=== PATIENT | female | born 1950 | race Caucasian/White ===

== ENCOUNTER 2019-01-18 13:24 | Inpatient (IN) | payer MEDICARE, OTHER ==
[~2019-01-18] VITALS: Ht 160 cm; Wt 104.3 kg
--- NOTE | 2019-01-18 13:42 | NUR ---
[id number], FROM [place], CAME IN DUE TO HYPOTENSION 76/43, PT WAS NOT DIALYZED. PT HAS NO COMPLAINTS AT THIS TIME. PORTACATH AT RIGHT UPPER CHEST. PER PT, OLD SHUNT IN LEFT UPPER ARM, USED FOR EMERGENCIES. NOTED WITH GENERALIZED EDEMA. STATES HAVING OSTEOMYELITIS WITH HEALING WOUNDS ON BLE. NO ACUTE DISTRESS NOTED. ON MONITOR AND READY FOR EVAL.
--- NOTE | 2019-01-18 13:55 | NUR ---
PT IS HARD STICK. PER MD, PT WILL NEED PICC LINE. NURSING SUP CALLED.
[2019-01-18] MEDS ORDERED: IV NS 0.9% 1,000 ML BAG IV ONE ×2 (14:00)
[2019-01-18] MEDS ORDERED: FOLI0.8T43 PO (14:19)
[2019-01-18] MEDS ORDERED: PROT946L PO (14:19)
[2019-01-18] MEDS ORDERED: ASCO500T8 PO (14:19)
[2019-01-18] MEDS ORDERED: ZINC220C6 PO (14:19)
[2019-01-18] MEDS ORDERED: ACET-907 PO (14:19)
[2019-01-18] MEDS ORDERED: TRAM50TA2 PO (14:19)
[2019-01-18] MEDS ORDERED: APIX2.5T PO (14:19)
[2019-01-18] MEDS ORDERED: PANT40TA4 PO (14:19)
[2019-01-18] MEDS ORDERED: MAGN400O6 BC (14:19)
[2019-01-18] MEDS ORDERED: FERR325T23 PO (14:19)
[2019-01-18] MEDS ORDERED: NA P133E RC (14:19)
[2019-01-18] MEDS ORDERED: GABA-534 PO (14:19)
[2019-01-18] MEDS ORDERED: ASPI-605 PO (14:19)
[2019-01-18] MEDS ORDERED: BISA10SU61 RC (14:19)
[2019-01-18] MEDS ORDERED: SENN-168 PO (14:19)
[2019-01-18 14:37] LABS: APPEARANCE,URINE Cloudy (CLEAR); BILIRUBIN,URINE Negative (NEGATIVE); BLOOD, URINE Moderate Ery/uL (NEGATIVE); COLOR,URINE Yellow (YELLOW); KETONES,URINE Negative (NEGATIVE); LEUKOCYTE ESTERASE ,URINE Large (NEGATIVE); NITRITE, URINE Negative (NEGATIVE); PH,URINE 7.5 (5.0-8.0); PROTEIN,URINE >=300 mg/dl (NEGATIVE); UGLUCOSE Negative (NEGATIVE); UROBILINOGEN,URINE 0.2 EU/dL (0.2)
[2019-01-18 14:43] LABS: BACTERIA,URINE 2+ /HPF (None Seen); WBC,URINE 51-80 /HPF (0-3)
[2019-01-18] MEDS ORDERED: CEFTRIAXONE 1GM BAG (ER ONLY) 50 ML IV ONE ×2 (15:00→16:41)
--- NOTE | 2019-01-18 15:17 | NUR ---
PICC NURSE AT BEDSIDE
--- NOTE | 2019-01-18 15:46 | NUR ---
EPIC CONCERT OR LECTURE HALL MANAGER PAGED
--- NOTE | 2019-01-18 15:59 | NUR ---
DR JOSE CARLOS HERRERA
--- NOTE | 2019-01-18 16:17 | NUR ---
PICC LINE PLACED 5 FR ERLINDA
[2019-01-18 16:28] LABS: BASOPHILS # (AUTO) 0.1 /CMM (0.0-0.2); BASOPHILS % (AUTO) 0.5 % (0.0-2.0); EOSINOPHILS % (AUTO) 0.3 % (0.0-6.0); HEMATOCRIT 29 % (33-45); HEMOGLOBIN 9.3 g/dL (11.5-14.8); LYMPHOCYTES # (AUTO) 2.3 /CMM (0.8-4.8); LYMPHOCYTES % (AUTO) 16.9 % (20.0-44.0); MEAN CORPUSCULAR HGB CONC 32 g/dl (31.0-36.0); MEAN CORPUSCULAR VOLUME 95 fL (82-100); MONOCYTES # (AUTO) 0.5 /CMM (0.1-1.30); NEUTROPHILS # (AUTO) 10.6 /CMM (1.8-8.9); NEUTROPHILS % (AUTO) 78.3 % (43.0-81.0); PLATELET COUNT (AUTO) 189 /CMM (150-450); RED BLOOD CELL COUNT(AUTO) 3.03 MIL/uL (4.0-5.2); WHITE BLOOD COUNT (AUTO) 13.6 K/uL (4.3-11.0)
[2019-01-18 16:33] LABS: CALCIUM, SERUM 8.8 mg/dL (8.5-10.1); CARBON DIOXIDE 23 mmol/L (21-32); CHLORIDE 103 mmol/L (98-107); CREATININE 4.4 mg/dL (0.6-1.3); GLUCOSE 95 mg/dL (74-106); POTASSIUM 5.7 mmol/L (3.5-5.1); SODIUM SERUM 136 mmol/L (136-145); UREA NITROGEN, BLOOD 33 mg/dL (7-18)
--- NOTE | 2019-01-18 17:02 | NUR ---
PT RESTING COMFORTABLY IN BED. AWAITING LAB RESULTS BEFORE TRANSFER TO UNIT
[2019-01-18 17:23] LABS: BAND % (MANUAL) 2 % (0.0-5.0); EOSINOPHILS % (MANUAL) 1 % (0-4); LYMPHOCYTES % (MANUAL) 15 % (16-48); MONOCYTES % (MANUAL) 4 % (0-11.0); NEUTROPHILS % (MANUAL) 78 (42-76)
[2019-01-18 17:39] LABS: ALANINE AMINOTRANSFERASE 12 U/L (12-78); ALKALINE PHOSPHATASE 184 U/L (46-116); ASPARTATE AMINOTRANSFERASE 16 U/L (15-37); BILIRUBIN,DIRECT 0.1 mg/dL (0.0-0.2); BILIRUBIN,TOTAL 0.2 mg/dL (0.2-1.0); TOTAL PROTEIN, SERUM 5.2 g/dL (6.4-8.2)
[2019-01-18 17:41] LABS: ALBUMIN 1.1 g/dL (3.4-5.0)
[2019-01-18] MEDS ORDERED: NA PHOS,M-B/NA PHOS,DI-BA 1 EA ENEMA RC PRN (18:00)
[2019-01-18] MEDS ORDERED: MAGNESIUM HYDROXIDE 30 ML UDC PO PRN (18:00)
[2019-01-18] MEDS ORDERED: BISACODYL SUPP (10 MG) 10 MG/SUPP.RECT SUPP.RECT RC PRN (18:00)
--- NOTE | 2019-01-18 18:00 | NUR ---
JASMINA RN NOTES PT ARRIVED ON JASMINA FLOOR; VS STABLE. BP 112/50. STARTED ON IV FLUIDS MD ORDERED. ORIENTED PT TO ROOM/ CLEANED PT. WILL ENDORSE TO PM NURSE FOR JUAN R.
--- NOTE | 2019-01-18 18:00 | NUR ---
PT TRANSFERRED TO UNIT VIA GURNEY. REPORT GIVEN TO SHANDA CHO AT BEDSIDE
[2019-01-18 18:44] VITALS: BP 112/50
[2019-01-18] MEDS: IV D5/ 0.9% NACL 1,000 ML IV SCH (19:08)
--- NOTE | 2019-01-18 19:24 | NUR ---
TD RN NOTES RECEIVED PT ON BED. A/O X 4. ON ROOM AIR NO RESPIRATORY DISTRESS NOTED.ON TELE MONITOR SR. IV ACCESS ON RIGHT UPPER ARM PICC LINE, PATENT AND INTACT. HD ACCESS ON RIGHT UPPER CHEST NO BLEEDING NOTED. HEAD OF BED ELEVATED. SIDE RAILS UP. CALL LIGHT WITHIN REACH, BED ALARM ON. WILL CONTINUE TO MONITOR PT CLOSELY.
[2019-01-18 20:28] VITALS: BP 98/51
[2019-01-18] MEDS: GABAPENTIN 300 MG CAPSULE PO SCH ×2 (21:08→21:20)
[2019-01-18] MEDS: SENNOSIDES 8.6 MG TABLET PO SCH ×2 (21:08→21:20)
--- NOTE | 2019-01-18 21:15 | NUR ---
TD RN NOTES CALLED MEDICAL TERRITORY MANAGER FOR POTASSIUM OF 5.7 AWAITING CALL BACK.
[2019-01-19] VITALS: BP 98/44
[2019-01-19 04:00] VITALS: BP 92/52
[2019-01-19] MEDS: IV D5/ 0.9% NACL 1,000 ML IV SCH ×2 (05:00→19:53)
[2019-01-19 05:21] LABS: BASOPHILS # (AUTO) 0.1 /CMM (0.0-0.2); BASOPHILS % (AUTO) 0.5 % (0.0-2.0); EOSINOPHILS % (AUTO) 0.6 % (0.0-6.0); HEMATOCRIT 27 % (33-45); HEMOGLOBIN 8.7 g/dL (11.5-14.8); LYMPHOCYTES # (AUTO) 1.7 /CMM (0.8-4.8); LYMPHOCYTES % (AUTO) 14.5 % (20.0-44.0); MEAN CORPUSCULAR HGB CONC 32 g/dl (31.0-36.0); MEAN CORPUSCULAR VOLUME 96 fL (82-100); MONOCYTES # (AUTO) 0.5 /CMM (0.1-1.30); MONOCYTES % (AUTO) 4.4 % (2.0-12.0); NEUTROPHILS # (AUTO) 9.3 /CMM (1.8-8.9); PLATELET COUNT (AUTO) 161 /CMM (150-450); RED BLOOD CELL COUNT(AUTO) 2.82 MIL/uL (4.0-5.2); WHITE BLOOD COUNT (AUTO) 11.6 K/uL (4.3-11.0)
[2019-01-19 05:34] LABS: CREATININE 4.5 mg/dL (0.6-1.3); MAGNESIUM 1.5 mg/dL (1.8-2.4); PHOSPHORUS 3.3 mg/dL (2.5-4.9); POTASSIUM 5.3 mmol/L (3.5-5.1)
--- NOTE | 2019-01-19 07:18 | NUR ---
TD RN NOTES NO ACUTE CHANGES NOTED DURING THE SHIFT. PROVIDED COMFORT AND SAFETY. WOUND CARE DONE. BP WNL.WILL ENDORSE TO THE AM NURSE FOR CONTINUITY OF CARE.
[2019-01-19 08:00] VITALS: BP 93/53
[2019-01-19] MEDS: ZINC SULFATE 220 MG CAPSULE PO SCH (08:15)
[2019-01-19] MEDS: ASPIRIN EC 81 MG TABLET.DR PO SCH (08:15)
[2019-01-19] MEDS: VIT B CMPLX 3/FA/VIT C/BIOTIN 1 TAB TABLET PO SCH (08:15)
[2019-01-19] MEDS: PANTOPRAZOLE 40 MG TABLET.DR PO SCH (08:15)
[2019-01-19] MEDS: ASCORBIC ACID 500 MG TABLET PO SCH (08:16)
[2019-01-19] MEDS: FERROUS SULFATE (325 MG) 325 MG/TAB TABLET PO SCH (08:16)
[2019-01-19] MEDS: APIXABAN 2.5 MG TABLET PO SCH ×2 (08:17→17:31)
[2019-01-19] MEDS: PROSOURCE / PROSTAT (PYXIS) 30 ML UDC GT SCH (09:00)
--- NOTE | 2019-01-19 10:07 | NUR ---
WARP SPLITTER AT BEDSIDE. BP 111/70
--- NOTE | 2019-01-19 10:32 | NUR ---
WOUND CARE CONSULT: ATTEMPTED SKIN ASSESSMENT BEFORE DIALYSIS TREATMENT BUT PT HAVING PAIN, ESPECIALLY IN LOWER LEGS. NECROTIC WOUNDS NOTED TO LOWER LEGS. ADMISSION PHOTOS SHOW RASHES TO SKIN FOLDS AND WOUNDS TO SACRAL/BUTTOCKS AREA. RECOMMEND SURGICAL CONSULT AND DPM CONSULT. DR MORALES NOTIFIED OF SURGICAL CONSULT REQUEST. DR CARRERO AWARE OF DPM CONSULT REQUEST. DEFER TO DPM AND PLASTIC SURGERY TEAM FOR WOUND TREATMENT PLAN. FIRST STEP LOW AIRLOSS MATTRESS ORDERED AND SKIN PROTECTION RECOMMENDATIONS DISCUSSED WITH NURSING STAFF. WILL SEE PRN. HOUSE IN AGREEMENT WITH PLAN OF CARE. CURRENT HENRRY SCORE IS 12.
[2019-01-19] MEDS ORDERED: Z GUARD REMEDY 2 OZ OINT TP PRN (11:00)
[2019-01-19] MEDS ORDERED: ALBUMIN 25% 25 GM in PREMIX 1 EA IV ONE (11:00)
[2019-01-19] MEDS ORDERED: Magnesium 1GM/D5W 100ML PREMIX 100 ML IV SCH (13:00)
[2019-01-19] MEDS: CLOTRIMAZOLE 1% 15 GM TUBE TP SCH ×2 (13:09→19:58)
[2019-01-19] MEDS: Z GUARD REMEDY 2 OZ OINT TP SCH (13:10)
--- NOTE | 2019-01-19 13:24 | NUR ---
DIALYSIS COMPLETED. BP 118/60
--- NOTE | 2019-01-19 13:36 | NUR ---
CONSENT FOR SERIAL DEBRIDEMENT SIGNED
[2019-01-19] MEDS: HYDROGEL DRESSING 90 GM TUBE TP SCH (14:04)
[2019-01-19] MEDS ORDERED: EPOETIN ALFA (10,000 UNIT) 10,000 UNIT/ML VIAL IV ONE (15:00)
[2019-01-19 16:00] VITALS: BP 100/57
[2019-01-19] MEDS: CEFTRIAXONE 1 G in IV D5W 50 ML IV SCH (17:31)
[2019-01-19 20:00] VITALS: BP 106/56
--- NOTE | 2019-01-19 20:44 | NUR ---
rECIEVED ALERT AND ORIENTATED DAUGHTER AT THE BEDSIDE PATIENTS A/OX4 VERBALIZING HER NEEDS ARMS AND HANDS AND LEGS AND FEET 3+ EDEMA NO NOTED SOB
[2019-01-19] MEDS: SENNOSIDES 8.6 MG TABLET PO SCH (21:31)
[2019-01-19] MEDS: GABAPENTIN 300 MG CAPSULE PO SCH (21:31)
[2019-01-20 04:00] VITALS: BP 93/49
--- NOTE | 2019-01-20 04:26 | NUR ---
ENDING NOTES: SLEPT 10 HOURS THIS NIGHT. BED BATH GIVEN EARLY AND SHE SLEPT WELL. PATIENT EXPRESSED HAPPINESS AND SMILES AND HAS A GOOD ATTITTIDE ATTEMPTS TO ASSIST NURSES WHEN CARE IS BEING RENDERED, BY GRABBING THE RAILS , ASSISTING SHE IS BEING REPOSITIONED. aSP, THIS 12 HOURS D/T AGE AND BEING IN THE BED, GOOD ABOUT TAKING FLUIDS SWALLOWS W/O PROBLEMS. LATEST bLOOD PRESSURE 93/47. IV FLUIDS CONTINUE TO INFUSE, ASYMPTOMATIC.
[2019-01-20 06:44] LABS: BASOPHILS % (AUTO) 0.1 % (0.0-2.0); EOSINOPHILS % (AUTO) 0.6 % (0.0-6.0); HEMATOCRIT 26 % (33-45); HEMOGLOBIN 8.2 g/dL (11.5-14.8); LYMPHOCYTES # (AUTO) 1.6 /CMM (0.8-4.8); LYMPHOCYTES % (AUTO) 19.7 % (20.0-44.0); MEAN CORPUSCULAR HGB CONC 32 g/dl (31.0-36.0); MEAN CORPUSCULAR VOLUME 95 fL (82-100); MONOCYTES # (AUTO) 0.4 /CMM (0.1-1.30); MONOCYTES % (AUTO) 4.4 % (2.0-12.0); NEUTROPHILS # (AUTO) 6.1 /CMM (1.8-8.9); NEUTROPHILS % (AUTO) 75.2 % (43.0-81.0); PLATELET COUNT (AUTO) 128 /CMM (150-450); RED BLOOD CELL COUNT(AUTO) 2.72 MIL/uL (4.0-5.2); WHITE BLOOD COUNT (AUTO) 8.1 K/uL (4.3-11.0)
[2019-01-20 07:03] LABS: CALCIUM, SERUM 7.6 mg/dL (8.5-10.1); CREATININE 3.3 mg/dL (0.6-1.3); MAGNESIUM 1.8 mg/dL (1.8-2.4); PHOSPHORUS 2.1 mg/dL (2.5-4.9); POTASSIUM 3.9 mmol/L (3.5-5.1)
[2019-01-20 08:00] VITALS: BP 130/62
[2019-01-20] MEDS: FERROUS SULFATE (325 MG) 325 MG/TAB TABLET PO SCH (08:24)
[2019-01-20] MEDS: ASCORBIC ACID 500 MG TABLET PO SCH (08:24)
[2019-01-20] MEDS: PANTOPRAZOLE 40 MG TABLET.DR PO SCH (08:24)
[2019-01-20] MEDS: ZINC SULFATE 220 MG CAPSULE PO SCH (08:24)
[2019-01-20] MEDS: ASPIRIN EC 81 MG TABLET.DR PO SCH (08:24)
[2019-01-20] MEDS: VIT B CMPLX 3/FA/VIT C/BIOTIN 1 TAB TABLET PO SCH (08:24)
[2019-01-20] MEDS: APIXABAN 2.5 MG TABLET PO SCH ×2 (08:25→17:20)
[2019-01-20] MEDS: CLOTRIMAZOLE 1% 15 GM TUBE TP SCH ×2 (08:27→17:19)
[2019-01-20] MEDS: HYDROGEL DRESSING 90 GM TUBE TP SCH (08:28)
[2019-01-20] MEDS: Z GUARD REMEDY 2 OZ OINT TP SCH (08:28)
[2019-01-20] MEDS: IV D5/ 0.9% NACL 1,000 ML IV SCH (08:29)
[2019-01-20] MEDS ORDERED: K PHOS NEUTRAL 250 MG TABLET PO ONE (11:00)
[2019-01-20] MEDS: PROSOURCE / PROSTAT (PYXIS) 30 ML UDC GT SCH (12:10)
[2019-01-20] MEDS: CEFTRIAXONE 1 G in IV D5W 50 ML IV SCH (17:19)
--- NOTE | 2019-01-20 19:15 | NUR ---
MS RN OPENING NOTES RECEIVED PATIENT IN BED. AWAKE, A/OX4. ABLE TO MAKE NEEDS KNOWN. ON ROOM AIR, NO SOB AND NO RESPIRATORY DISTRESS NOTED. DENIES ANY PAIN AT THE MOMENT. PATIENT COMPLAINING THAT NO ONE HAS CLEANED HER SINCE GLAZIER STAINED GLASS, WILL MAKE SURE PATIENT WILL BE CLEANED NEEDED. IV ACCESS ON RIGHT UPPER ARM PICC LINE, PATENT AND INTACT, D5 NS RUNNING AT 80ML/HR, NO INFILTRATION NOTED. HD ACCESS ON RIGHT UPPER CHEST, NO BLEEDING NOTED, SITE C/D/I. HEAD OF BED ELEVATED. SAFETY MEASURES IN PLACE; SIDE RAILS UP X2, CALL LIGHT WITHIN REACH, BED ALARM ON, BED LOCKED AND IN LOWEST POSITION. WILL CONTINUE TO MONITOR PT CLOSELY.
[2019-01-20 20:00] VITALS: BP 97/61
[2019-01-20] MEDS: GABAPENTIN 300 MG CAPSULE PO SCH ×2 (21:35→21:58)
[2019-01-20] MEDS: SENNOSIDES 8.6 MG TABLET PO SCH (21:36)
--- NOTE | 2019-01-21 01:00 | NUR ---
MS RN NOTES PAGED HOSPITALIST REGARDING PATIENT IV FLUIDS ORDER D5NS 1000ML AT 80ML/HR. PATIENT HAS ESRD AND ON HD. HOSPITALIST ORDERED TO HOLD IV FLUIDS FOR NOW AND ENDORSE TO AM RN. WILL ATTEND TO MD ORDER AND WILL ENDORSE TO AM RN.
[2019-01-21 04:00] VITALS: BP 101/60
--- NOTE | 2019-01-21 07:15 | NUR ---
RN OPENING NOTES RECEIVED REPORT FROM DOWEL POINTER RN. PT IS ASLEEP IN BED WILL CONTINUE TO MONITOR. PT HAS EQUAL CHEST RISE AND FALL. BED IS LOCKED AND IN LOWEST POSITION WITH CALL LIGHT IN REACH. NO OBVIOUS SIGNS OF PAIN OR SOB NOTED AT PRESENT TIME WILL CONTINUE TO MONITOR.
--- NOTE | 2019-01-21 07:15 | NUR ---
MS RN CLOSING NOTES PATIENT IN BED. AWAKE, A/OX4, WITH EPISODES OF CONFUSION LAST NIGHT. ABLE TO MAKE NEEDS KNOWN. NO ACUTE CHANGES THROUGHOUT SHIFT. ON ROOM AIR, NO SOB AND NO RESPIRATORY DISTRESS NOTED. DENIES ANY PAIN AT THE MOMENT. IV ACCESS ON RIGHT UPPER ARM PICC LINE, PATENT AND INTACT, S/L. HD ACCESS ON RIGHT UPPER CHEST, NO BLEEDING NOTED, SITE C/D/I. REPOSITIONED Q2H. CHANGES DIAPER X4 D/T LOOSE STOOL, KEPT PATIENT CLEAN AND DRY. ALL MD ORDERS ATTENDED, ALL NEEDS ANTICIPATED AND MET. HEAD OF BED ELEVATED. SAFETY MEASURES IN PLACE; SIDE RAILS UP X2, CALL LIGHT WITHIN REACH, BED ALARM ON, BED LOCKED AND IN LOWEST POSITION. ENDORSED TO AM RN FOR JUAN R.
[2019-01-21 08:00] VITALS: BP 101/52
[2019-01-21] MEDS: ASCORBIC ACID 500 MG TABLET PO SCH (08:49)
[2019-01-21] MEDS: PANTOPRAZOLE 40 MG TABLET.DR PO SCH (08:49)
[2019-01-21] MEDS: FERROUS SULFATE (325 MG) 325 MG/TAB TABLET PO SCH (08:49)
[2019-01-21] MEDS: VIT B CMPLX 3/FA/VIT C/BIOTIN 1 TAB TABLET PO SCH (08:49)
[2019-01-21] MEDS: ZINC SULFATE 220 MG CAPSULE PO SCH (08:50)
[2019-01-21] MEDS: ASPIRIN EC 81 MG TABLET.DR PO SCH (08:50)
[2019-01-21] MEDS: APIXABAN 2.5 MG TABLET PO SCH ×2 (08:51→16:32)
[2019-01-21] MEDS: PROSOURCE / PROSTAT (PYXIS) 30 ML UDC GT SCH (08:51)
[2019-01-21] MEDS: HYDROGEL DRESSING 90 GM TUBE TP SCH (08:52)
[2019-01-21] MEDS: Z GUARD REMEDY 2 OZ OINT TP SCH (08:53)
[2019-01-21] MEDS: CLOTRIMAZOLE 1% 15 GM TUBE TP SCH ×2 (08:53→16:33)
[2019-01-21 12:00] VITALS: BP 119/53
[2019-01-21 16:00] VITALS: BP 114/62
[2019-01-21] MEDS: CEFTRIAXONE 1 G in IV D5W 50 ML IV SCH (16:31)
--- NOTE | 2019-01-21 18:46 | NUR ---
RN CLOSING NOTES PT IS AWAKE IN BED EATING FOOD. PT IS A&OX3 WITH CALL LIGHT IN REACH. PICC LINE IN ERLINDA FLUSHING. PT IS BED CONFINED. PT DENIES ANY PAIN OR SOB AT PRESENT MOMENT. BED IS LOCKED AND IN LOWEST POSITION WITH CALL LIGHT IN REACH. WILL ENDORSE CONTINUATION OF CARE TO SELF PAY REPRESENTATIVE RN.
--- NOTE | 2019-01-21 19:34 | NUR ---
MS RN NOTE: RECEIVED PT ON BED ASLEEP BUT AROUSES EASILY TO VERBAL AND TACTILE STIMULI. PT IS ALERT AND ORIENTED X3. NO APPARENT DISTRESS NOTED. NO COMPLAINTS OF PAIN OR DISCOMFORT AT THIS TIME. ON ROOM AIR, NO SOB NOTED. RIGHT UPPER ARM PICC LINE INTACT AND PATENT, FLUSHING WELL. KEPT CLEAN, DRY AND COMFORTABLE. SAFETY AND FALL PRECAUTIONS OBSERVED AND MAINTAINED. WILL CONTINUE TO MONITOR PT.
[2019-01-21 20:00] VITALS: BP 102/68
[2019-01-21] MEDS: SENNOSIDES 8.6 MG TABLET PO SCH (22:00)
[2019-01-21] MEDS: GABAPENTIN 300 MG CAPSULE PO SCH (22:00)
[2019-01-22 04:00] VITALS: BP 137/91
--- NOTE | 2019-01-22 06:37 | NUR ---
MS RN NOTE: NO CHANGES NOTED THROUGHOUT THE SHIFT. NO APPARENT DISTRESS NOTED. DENIES PAIN AND DISCOMFORT AT THIS TIME. ON ROOM AIR, SATURATING WELL. BREATHING EVEN AND UNLABORED WITH NORMAL RESPIRATIONS. RIGHT UPPER ARM PICC LINE INTACT AND PATENT, FLUSHING WELL. KEPT CLEAN, DRY AND COMFORTABLE. CALL LIGHT PLACED WITHIN REACH. SAFETY AND FALL PRECAUTIONS OBSERVED AND MAINTAINED. WILL ENDORSE TO DAY SHIFT RN FOR CONTINUITY OF CARE.
--- NOTE | 2019-01-22 07:20 | NUR ---
RN INITIAL NOTE PATIENT IN BED, ASLEEP BUT EASILY AROUSABLE. NO COMPLAINS OF ANY PAIN NOR SOB, ON ROOM AIR. HAS BUE/BLE EDEMA. HAS MULTIPLE WOUNDS. HAS A RIGHT UA PICC, SL. HAS RIGHT CW HD CATH. ON RENAL STANDARD DIET. BED LOCKED AND IN LOWEST POSITION. CALL LIGHT WITHIN REACH. WILL CONTINUE TO MONITOR
[2019-01-22 08:00] VITALS: BP 98/62
[2019-01-22] MEDS: PANTOPRAZOLE 40 MG TABLET.DR PO SCH ×2 (08:18→08:30)
[2019-01-22] MEDS: ZINC SULFATE 220 MG CAPSULE PO SCH (08:18)
[2019-01-22] MEDS: ASCORBIC ACID 500 MG TABLET PO SCH (08:18)
[2019-01-22] MEDS: ASPIRIN EC 81 MG TABLET.DR PO SCH (08:18)
[2019-01-22] MEDS: VIT B CMPLX 3/FA/VIT C/BIOTIN 1 TAB TABLET PO SCH (08:18)
[2019-01-22] MEDS: FERROUS SULFATE (325 MG) 325 MG/TAB TABLET PO SCH (08:18)
[2019-01-22] MEDS: PROSOURCE / PROSTAT (PYXIS) 30 ML UDC GT SCH ×2 (08:20→08:30)
[2019-01-22] MEDS: APIXABAN 2.5 MG TABLET PO SCH ×2 (08:22→16:34)
[2019-01-22] MEDS: CLOTRIMAZOLE 1% 15 GM TUBE TP SCH ×2 (08:27→16:41)
[2019-01-22] MEDS: HYDROGEL DRESSING 90 GM TUBE TP SCH (08:28)
[2019-01-22] MEDS: Z GUARD REMEDY 2 OZ OINT TP SCH (08:28)
--- NOTE | 2019-01-22 08:30 | NUR ---
RN NOTE PATIENT REFUSED PROTONIX AND PROSTAT. EXPLAINED THAT THESE MEDICATIONS ARE VERY IMPORTANT FOR HER, PATIENT STILL REFUSED. PATIENT ALERT AND ORIENTED X4
[2019-01-22] MEDS: TRAMADOL HCL 50 MG TABLET PO PRN (09:07)
[2019-01-22] MEDS: ACETAMINOPHEN W/ CODEINE#3 1 EA TABLET PO PRN ×2 (10:23→16:44)
--- NOTE | 2019-01-22 10:27 | NUR ---
RN NOTE PATIENT STILL COMPLAINING OF PAIN AFTER TRAMADOL. SHE ASKED SPECIFICALLY FOR TYLENOL WITH CODEINE. WILL CONTINUE TO MONITOR
[2019-01-22 16:00] VITALS: BP 109/70
[2019-01-22] MEDS: CEFTRIAXONE 1 G in IV D5W 50 ML IV SCH (16:31)
--- NOTE | 2019-01-22 18:38 | NUR ---
RN NOTE PATIENT HAD 1X EPISODE OF NAUSEA AND VOMITING. NO BLOOD NOTED ON THE VOMIT. SMALL AMOUNT. GREEN COLOR. DAUGHTER AT BEDSIDE. PATIENT REFUSED TO HAVE ZOFRAN.
--- NOTE | 2019-01-22 18:45 | NUR ---
RN CLOSING NOTE PATIENT AWAKE AND ALERT. ON ROOM AIR, NO SOB NOTED. HAD 1X BM. ALL VITALS WNL. MEDS GIVEN, SOME REFUSED. WOUND CARE DONE. HAS RIGHT UPPER ARM PICC SALINE LOCKED. HAS RIGHT CW HD CATH. HD TOMORROW AT 0700. PATIENT WAS GIVEN TYLENOL WITH CODEINE, LAST GIVEN AT 1630. JUAN R PER MD. BED LOCKED AND IN LOWEST POSITION. CALL LIGHT WITHIN REACH. WILL ENDORSE TO NOC SHIFT FOR JUAN R
[2019-01-22 20:00] VITALS: BP 100/47
--- NOTE | 2019-01-22 20:00 | NUR ---
ms rn notes received pts in bed awake and responsive able to make needs known , no sob no distress noted , breathing even and unlabored .v/s stable afebrile.no c/o of pain at this time , due meds Neurontin and senna not given d/t pts refusal , explain r/b pts still refused , pts with right upper arm picc line intact and patent , hd access on right chest wall intact and patent no bleeding noted , all needs attended too call light within reach keep pts clean dry and comfortable.
[2019-01-22] MEDS: SENNOSIDES 8.6 MG TABLET PO SCH (21:48)
[2019-01-22] MEDS: GABAPENTIN 300 MG CAPSULE PO SCH (21:48)
[2019-01-23 04:00] VITALS: BP 104/56
--- NOTE | 2019-01-23 06:54 | NUR ---
MS RN NOTES PTS IN BED AWAKE AND RESPONSIVE , V/S STABLE AFEBRILE NO SOB NO DISTRESS NOTED , ALL NEEDS ATTENDED TOO CALL LIGHT WITHIN REACH , PTS NON COMPLIANT TO CARE , EXPLAIN R/B STILL REFUSING CARE. WILL ENDORSE TO RN DAY SHIFT FOR CONTINUITY OF CARE.
[2019-01-23 08:00] VITALS: BP 150/53
--- NOTE | 2019-01-23 08:00 | NUR ---
MS RN NOTE RECEIVED PATIENT IN BED , ALERT, ORIENTED X3 , ON RA NO SOB NOTED AT THIS TIME, RESPIRATION EVEN AND UNLABORED, NO C\O PAIN OR DISCOMFORT AT THIS MINOR ,DR LEPE AT BEDSIDE SEEN PATENT, , RT UA PICC LINE IN PLACE, NO S\S INFECTION NOTED , RT CW HD CATH IN PLACE ,BED IN LOWEST AND LOCKED POSITION , SAFETY MEASURE OBSERVED , CALL LIGHT WITHIN REACH PLAN OF CARE DISCUSSED WITH PATIENT, WILL MONITOR , UPPER AND LOWER EXTREMITIES WITH EDEMA AND KEEP ELEVATED TOLERATED ,
--- NOTE | 2019-01-23 08:30 | NUR ---
MS RN NOTE PT ON HEMODIALYSIS. WILL ADMINISTER THE MEDICATION AFTER HEMODIALYSIS.
[2019-01-23] MEDS: ALBUMIN 25% 25 GM in PREMIX 1 EA IV PRN (09:39)
[2019-01-23] MEDS: ASCORBIC ACID 500 MG TABLET PO SCH (10:46)
[2019-01-23] MEDS: PANTOPRAZOLE 40 MG TABLET.DR PO SCH ×2 (10:46→10:55)
[2019-01-23] MEDS: VIT B CMPLX 3/FA/VIT C/BIOTIN 1 TAB TABLET PO SCH (10:47)
[2019-01-23] MEDS: ZINC SULFATE 220 MG CAPSULE PO SCH (10:47)
[2019-01-23] MEDS: ASPIRIN EC 81 MG TABLET.DR PO SCH (10:47)
[2019-01-23] MEDS: FERROUS SULFATE (325 MG) 325 MG/TAB TABLET PO SCH (10:47)
[2019-01-23] MEDS: APIXABAN 2.5 MG TABLET PO SCH ×2 (10:48→16:03)
[2019-01-23] MEDS: PROSOURCE / PROSTAT (PYXIS) 30 ML UDC GT SCH (10:49)
[2019-01-23] MEDS: HYDROGEL DRESSING 90 GM TUBE TP SCH (10:50)
[2019-01-23] MEDS: Z GUARD REMEDY 2 OZ OINT TP SCH (10:51)
[2019-01-23] MEDS: CLOTRIMAZOLE 1% 15 GM TUBE TP SCH ×2 (10:51→16:04)
--- NOTE | 2019-01-23 10:54 | NUR ---
ms rn note hd completed, no fluids out, bp103/45 p 78
--- NOTE | 2019-01-23 12:30 | NUR ---
MS RN NOTES HAVING LUNCH WITH MINIMAL ASSISTANCE. ALL NEEDS ATTENDED AND CALL LIGHT WITHIN REACH. WILL CONTINUE TO MONITOR. .
[2019-01-23] MEDS: CEFTRIAXONE 1 G in IV D5W 50 ML IV SCH (15:56)
[2019-01-23 16:00] VITALS: BP 138/55
--- NOTE | 2019-01-23 18:37 | NUR ---
MS RN NOTES PT IS HAVING DINNER WITH MINIMAL ASSISTANCE. SHE IS NOT IN DISTRESS . RESPIRATION UNLABORED. CALL LIGHT WITHIN REACH. TURNING POSITION DONE. SHE IS DRY AND COMFORTABLE.
[2019-01-23 20:00] VITALS: BP 110/51
--- NOTE | 2019-01-23 20:00 | NUR ---
RN NOTES, PATIENT A/O X3 ABLE TO VERBALIZED NEEDS AND CONCERNS, BREATHING EVEN AND UNLABORED, NO S/S OF SOB/ACUTE DISTRESS NOTED, AT ROOM AIR WITH OPTIMAL O2 SAT LEVEL, INFORMED PATIENT THAT WE NEED TO TAKE PICTURES FOR SKIN ISSUES ON SUNDAYS, AND IT WAS OK TO TAKE PICTURES, AND SHE STATED SHE DOESN'T WANT TO TAKE ANY PICTURES, EXPLAINED RISKS AND BENEFIT, STILL REFUSED, WILL FOLLOW UP LATER DURING THE SHIFT.
[2019-01-23] MEDS: SENNOSIDES 8.6 MG TABLET PO SCH (21:39)
[2019-01-23] MEDS: GABAPENTIN 300 MG CAPSULE PO SCH (21:39)
--- NOTE | 2019-01-24 | NUR ---
RN NOTES, ASKED AGAIN TO PATIENT ABOUT PICTURES, AND THE IMPORTANCE OF IT, AND SHE STATED SHE DOESN'T WANT TO TAKE ANY PICTURES, EXPLAINED RISKS AND BENEFIT, STILL REFUSED.
[2019-01-24 04:00] VITALS: BP 109/47
--- NOTE | 2019-01-24 06:37 | NUR ---
RN NOTES, PATIENT IN BED, SLEEPING AT THIS TIME, BUT EASILY AROUSES TO VERBAL AND TACTILE STIMULI, BREATHING EVEN AND UNLABORED AT ROOM AIR, , NO SOB/ACUTE DISTRESS NOTED AT THIS TIME, PATIENT AGAIN ASKED TO TAKE PICTURES OF SKIN ISSUES AND PATIENT REFUSED AGAIN, CHARGE NURSE AWARE, NO SIGNIFICANT CHANCE IN CONDITION DURING THE NIGHT, CALL LIGHT W/I REACH, BED LOCKED AND IN LOW POSITION, WILL ENDORSE CONTINUITY OF CARE TO ONCOMING NURSE.
--- NOTE | 2019-01-24 07:30 | NUR ---
MS OPENING NOTE RECEIVED REPORT FROM [facility] SHIFT NURSE. PT SLEEPING IN BED, ON ROOM AIR, SATURATING WELL, RESPIRATIONS EASY AND UNLABORED, NO SINGS OF RESPIRATORY DISTRESS NOTED. BED IN LOW POSITION, LOCKED, CALL LIGHT WITHIN REACH. PICC LINE IN RIGHT UPPER ARM, DRESSING CLEAN AND INTACT.
[2019-01-24 08:00] VITALS: BP 93/44
[2019-01-24] MEDS: ZINC SULFATE 220 MG CAPSULE PO SCH (08:00)
[2019-01-24] MEDS: FERROUS SULFATE (325 MG) 325 MG/TAB TABLET PO SCH (08:00)
[2019-01-24] MEDS: ASCORBIC ACID 500 MG TABLET PO SCH (08:00)
[2019-01-24] MEDS: ASPIRIN EC 81 MG TABLET.DR PO SCH (08:01)
[2019-01-24] MEDS: APIXABAN 2.5 MG TABLET PO SCH ×2 (08:02→17:29)
[2019-01-24] MEDS: VIT B CMPLX 3/FA/VIT C/BIOTIN 1 TAB TABLET PO SCH (08:29)
[2019-01-24] MEDS: HYDROGEL DRESSING 90 GM TUBE TP SCH (09:00)
[2019-01-24] MEDS: CLOTRIMAZOLE 1% 15 GM TUBE TP SCH ×2 (09:00→17:45)
[2019-01-24] MEDS: Z GUARD REMEDY 2 OZ OINT TP SCH (09:00)
[2019-01-24] MEDS: PROSOURCE / PROSTAT (PYXIS) 30 ML UDC GT SCH (10:15)
--- NOTE | 2019-01-24 15:50 | NUR ---
REMOVED BILATERAL POSTERIOR THIGH DRESSINGS. PT REFUSED WOUND CARE X 3.
[2019-01-24 16:00] VITALS: BP 121/65
[2019-01-24] MEDS: CEFTRIAXONE 1 G in IV D5W 50 ML IV SCH (17:31)
--- NOTE | 2019-01-24 19:06 | NUR ---
PT AWAKE IN BED, FAMILY BY BEDSIDE. ON ROOM AIR, SATURATING WELL. REPORTS PAIN FROM HER WOUNDS AND REFUSES THE RN TO PERFORM WOUND CARE ON BILATERAL LEGS. PROVIDED SAFETY AND COMFORT THROUGHOUT SHIFT. WILL ENDORSE TO NOC SHIFT NURSE.
[2019-01-24 20:00] VITALS: BP 105/70
[2019-01-24] MEDS: GABAPENTIN 300 MG CAPSULE PO SCH (21:10)
[2019-01-24] MEDS: SENNOSIDES 8.6 MG TABLET PO SCH (21:11)
[2019-01-25] MEDS: TRAMADOL HCL 50 MG TABLET PO PRN ×4 (03:07→17:01)
[2019-01-25 05:00] VITALS: BP 123/60
--- NOTE | 2019-01-25 06:52 | NUR ---
RN NOTES, PATIENT IN BED, SLEEPING AT THIS TIME, BUT EASILY AROUSES TO VERBAL AND TACTILE STIMULI, BREATHING EVEN AND UNLABORED AT ROOM AIR, NO SOB/ACUTE DISTRESS NOTED AT THIS TIME, TREATMENT FOR WOUNDS DONE ORDERED, BED BATH GIVEN AND PATIENT DRY AND CLEAN AND WELL REPOSITIONED, NO SIGNIFICANT CHANCE IN CONDITION DURING THE NIGHT, CALL LIGHT W/I REACH, BED LOCKED AND IN LOW POSITION, WILL ENDORSE CONTINUITY OF CARE TO ONCOMING NURSE.
[2019-01-25 06:56] LABS: BASOPHILS % (AUTO) 0.1 % (0.0-2.0); EOSINOPHILS % (AUTO) 0.1 % (0.0-6.0); HEMATOCRIT 31 % (33-45); HEMOGLOBIN 9.9 g/dL (11.5-14.8); LYMPHOCYTES # (AUTO) 2.3 /CMM (0.8-4.8); LYMPHOCYTES % (AUTO) 17.3 % (20.0-44.0); MEAN CORPUSCULAR HGB CONC 32 g/dl (31.0-36.0); MEAN CORPUSCULAR VOLUME 94 fL (82-100); MONOCYTES # (AUTO) 0.4 /CMM (0.1-1.30); MONOCYTES % (AUTO) 2.8 % (2.0-12.0); NEUTROPHILS # (AUTO) 10.5 /CMM (1.8-8.9); NEUTROPHILS % (AUTO) 79.7 % (43.0-81.0); PLATELET COUNT (AUTO) 126 /CMM (150-450); RED BLOOD CELL COUNT(AUTO) 3.26 MIL/uL (4.0-5.2); WHITE BLOOD COUNT (AUTO) 13.2 K/uL (4.3-11.0)
[2019-01-25 07:21] LABS: BILIRUBIN,TOTAL 0.2 mg/dL (0.2-1.0); MAGNESIUM 1.5 mg/dL (1.8-2.4); PHOSPHORUS 3.4 mg/dL (2.5-4.9); POTASSIUM 3.9 mmol/L (3.5-5.1); TOTAL PROTEIN, SERUM 4.6 g/dL (6.4-8.2)
--- NOTE | 2019-01-25 07:35 | NUR ---
RN OPENING NOTES RECEIVED PATIENT SLEEPING IN BED, EASILY AROUSED WHEN SPOKEN TO. SHE IS AOX2, ON RA, SHOWS NO S/SX OF RESP DISTRESS OR SOB. SHE HAS MULTIPLE WOUNDS THROUGHOUT HER BODY, WILL CHANGE DRESSINGS. SHE IS ON A RENAL STANDARD DIET. SHE HAS A ERLINDA PICC LINE AND A RCW HD CATH. SAFETY MEASURES HAVE BEEN IMPLEMENTED, BED IN LOWEST AND LOCKED POSITION, CALL LIGHT WITHIN REACH, SIDE RAILS UP X2, WILL CONTINUE TO MONITOR FOR ANY CHANGES
[2019-01-25 07:39] LABS: ALBUMIN 1.4 g/dL (3.4-5.0)
[2019-01-25 08:00] VITALS: BP 90/61
[2019-01-25] MEDS: HYDROGEL DRESSING 90 GM TUBE TP SCH (09:00)
[2019-01-25] MEDS: CLOTRIMAZOLE 1% 15 GM TUBE TP SCH ×2 (09:00→16:54)
[2019-01-25] MEDS: Z GUARD REMEDY 2 OZ OINT TP SCH (09:00)
[2019-01-25] MEDS: APIXABAN 2.5 MG TABLET PO SCH ×2 (09:20→16:57)
[2019-01-25] MEDS: FERROUS SULFATE (325 MG) 325 MG/TAB TABLET PO SCH (09:21)
[2019-01-25] MEDS: ZINC SULFATE 220 MG CAPSULE PO SCH (09:21)
[2019-01-25] MEDS: ASCORBIC ACID 500 MG TABLET PO SCH (09:22)
[2019-01-25] MEDS: VIT B CMPLX 3/FA/VIT C/BIOTIN 1 TAB TABLET PO SCH (09:22)
[2019-01-25] MEDS: ASPIRIN EC 81 MG TABLET.DR PO SCH (09:22)
[2019-01-25] MEDS: PANTOPRAZOLE 40 MG TABLET.DR PO SCH (09:22)
[2019-01-25] MEDS: PROSOURCE / PROSTAT (PYXIS) 30 ML UDC GT SCH ×2 (09:41→17:01)
--- NOTE | 2019-01-25 10:00 | NUR ---
ALBUMIN CRITICAL LAB OF 1.[address] LASSITER[address] WILL REPLACE WITH 25% DURING HD
[2019-01-25] MEDS ORDERED: EPOETIN ALFA (10,000 UNIT) 10,000 UNIT/ML VIAL IV SCH (11:00)
[2019-01-25] MEDS: ALBUMIN 25% 25 GM in PREMIX 1 EA IV PRN (11:03)
[2019-01-25 14:00] VITALS: BP 90/61
--- NOTE | 2019-01-25 15:58 | NUR ---
PATIENT IS REFUSING WOUND CARE ON BILATERAL LEGS, STATES THAT IT HURTS TO MUCH. SHE WAS OFFERED PAIN MEDICATION BUT REFUSED, WILL CONTINUE TO MONITOR FOR ANY CHANGES.
[2019-01-25 16:00] VITALS: BP 101/55
--- NOTE | 2019-01-25 19:28 | NUR ---
RN CLOSING NOTES PATIENT IS RESTING IN BED COMFORTABLY. SHE WAS MEDICATED FOR HER PAIN AT 1700 AND REPORTS FEELING BETTER, SHE STILL REFUSED THE DRESSING CHANGE FOR HER BLE. SHE IS ON RA, SHOWS NO S/SX OR RESP DISTRESS OR SOB, PATIENTS NEEDS OF THE DAY HAVE BEEN MET. NO ACUTE CHANGES DURING THE SHIFT. SAFETY MEASURES HAVE BEEN IMPLEMENTED, CALL LIGHT WITHIN REACH, SIDE RAILS UP X2, BED IN LOWEST AND LOCKED POSITION. PATIENT HAS BEEN ENDORSED TO NIGHTSHIFT NURSE.
--- NOTE | 2019-01-25 19:30 | NUR ---
RN NOTES, PATIENT IN BED ASLEEP BUT EASILY AROUSES TO VERBAL STIMULI, A/O X3 ABLE TO VERBALIZED NEEDS AND CONCERNS, AT ROOM AIR, BREATHING EVEN AND UNLABORED, NO S/S OF SOB/ACUTE DISTRESS NOTED, WITH OPTIMAL O2 SAT LEVEL AT THIS TIME, S/P HEMODIALYSIS TODAY, NO S/S OR C/O DISCOMFORT REPORTED, BED LOCKED AND IN LOW POSITION, REFUSED REPOSITION AT THIS TIME, CALL LIGHT W/I REACH, WILL CONTINUE TO MONITOR CLOSELY.
[2019-01-25 20:00] VITALS: BP_SYST 105; BP_SYST 108; BP_DIAS 56; BP_DIAS 74
[2019-01-25] MEDS: GABAPENTIN 300 MG CAPSULE PO SCH (21:20)
[2019-01-25] MEDS: SENNOSIDES 8.6 MG TABLET PO SCH (21:20)
[2019-01-25 22:18] VITALS: BP 105/56
[2019-01-26] VITALS: BP 118/74
[2019-01-26 04:00] VITALS: BP_SYST 118; BP_SYST 119; BP_DIAS 74; BP_DIAS 90
--- NOTE | 2019-01-26 07:30 | NUR ---
MS/RN OPENING NOTES PATIENT IN BED SLEEPING COMFORTABLY. EASILY AROUSABLE. PATIENT ABLE TO RESPOND TO VERBAL AND TACTILE STIMULI. PATIENT IS ALERT AND ORIENTED X3. ABLE TO MAKE NEEDS KNOWN. NO PAIN OR ACUTE DISTRESS AT THIS TIME. PATIENT AT ROOM AIR, RESPIRATION EVEN AND UNLABORED. SATURATING WELL. ALL NEEDS ANTICIPATED. CALL LIGHT WITHIN REACHED. BED LOCKED AND IN LOWEST POSITION. SAFETY MAINTAINED. WILL CONTINUE TO MONITOR PATIENT CLOSELY.
[2019-01-26 08:00] VITALS: BP_SYST 105; BP_SYST 98; BP_DIAS 45; BP_DIAS 65
[2019-01-26] MEDS: ASCORBIC ACID 500 MG TABLET PO SCH (08:51)
[2019-01-26] MEDS: ZINC SULFATE 220 MG CAPSULE PO SCH (08:51)
[2019-01-26] MEDS: PANTOPRAZOLE 40 MG TABLET.DR PO SCH (08:51)
[2019-01-26] MEDS: FERROUS SULFATE (325 MG) 325 MG/TAB TABLET PO SCH (08:51)
[2019-01-26] MEDS: ASPIRIN EC 81 MG TABLET.DR PO SCH (08:51)
[2019-01-26] MEDS: PROSOURCE / PROSTAT (PYXIS) 30 ML UDC GT SCH ×2 (08:51→16:41)
[2019-01-26] MEDS: VIT B CMPLX 3/FA/VIT C/BIOTIN 1 TAB TABLET PO SCH (08:51)
[2019-01-26] MEDS: Z GUARD REMEDY 2 OZ OINT TP SCH (08:52)
[2019-01-26] MEDS: CLOTRIMAZOLE 1% 15 GM TUBE TP SCH ×2 (08:52→16:43)
[2019-01-26] MEDS: APIXABAN 2.5 MG TABLET PO SCH ×2 (08:58→16:41)
[2019-01-26] MEDS: HYDROGEL DRESSING 90 GM TUBE TP SCH (09:10)
[2019-01-26 16:00] VITALS: BP 115/58
--- NOTE | 2019-01-26 19:26 | NUR ---
MS/RN CLOSING NOTES PATIENT CONTINUES TO REMAIN IN STABLE CONDITION. PROVIDED COMFORT AND SAFETY THROUGHOUT THE SHIFT. PATIENT IS ALERT AND ORIENTED X3. ABLE TO MAKE NEEDS KNOWN. NO PAIN OR ACUTE DISTRESS AT THIS TIME. PATIENT WAS ABLE TO TOLERATE MEALS AND MEDS WELL. DRESSING ON POST DEBRIDEMENT INTACT AND PATENT. PATIENT AT ROOM AIR, RESPIRATION EVEN AND UNLABORED. SATURATING WELL. ALL NEEDS ANTICIPATED. CALL LIGHT WITHIN REACHED. BED LOCKED AND IN LOWEST POSITION. SAFETY MAINTAINED. WILL CONTINUE TO MONITOR PATIENT CLOSELY. ENDORSED TO PM NURSE FOR JUAN R.
--- NOTE | 2019-01-26 19:30 | NUR ---
MS RN NOTES RECEIVED PT ON BED. A/O X 3. SLEEPING. ON ROOM AIR NO RESPIRATORY DISTRESS NOTED.,IV ACCESS ON ERLINDA PICC LINE PATENT AND INTACT. HEAD OF BED ELEVATED. SIDE RAILS UP. CALL LIGHT WITHIN REACH. BED ALARM ON. WILL CONTINUE TO MONITOR PT CLOSELY.
[2019-01-26 20:00] VITALS: BP 100/56
[2019-01-26] MEDS: SENNOSIDES 8.6 MG TABLET PO SCH (21:02)
[2019-01-26] MEDS: GABAPENTIN 300 MG CAPSULE PO SCH (21:02)
--- NOTE | 2019-01-26 21:03 | NUR ---
MS RN NOTES PT REFUSING MEDICATION, EXPLAINED RISK AND BENEFITS, PT STILL REFUSED.
[2019-01-27 04:00] VITALS: BP 110/52
--- NOTE | 2019-01-27 06:45 | NUR ---
MS RN NOTES NO ACUTE CHANGES NOTED DURING THE SHIFT. NO ACTIVE BLEEDING NOTED. PROVIDED COMFORT AND SAFETY. WILL ENDORSE TO THE AM NURSE FOR CONTINUITY OF CARE.
--- NOTE | 2019-01-27 07:15 | NUR ---
MS RN OPENING PATIENT AWAKE, FOLLOWING COMMAND. RESPONDING TO SOME QUESTIONS. DENIES CHEST PAIN. BP 102/44. ERLINDA PICC SALINE LOCKED. BED LOCKED, LOW, SIDE RAILS UPX2, CALL LIGHT WITHIN REACH, WILL CONTINUE TO MONITOR
--- NOTE | 2019-01-27 07:45 | NUR ---
TOMATO GRADER AT BEDSIDE
[2019-01-27 08:00] VITALS: BP 102/44
[2019-01-27] MEDS: ALBUMIN 25% 25 GM in PREMIX 1 EA IV PRN (08:17)
--- NOTE | 2019-01-27 08:25 | NUR ---
PATIENT SEEN BY DR. SHERLEY Thomas AWARE OF PATIENT CONDITION, ORDERS RECEIVED
[2019-01-27] MEDS: APIXABAN 2.5 MG TABLET PO SCH ×2 (09:00→17:22)
[2019-01-27 09:03] LABS: BASOPHILS % (AUTO) 0.2 % (0.0-2.0); EOSINOPHILS % (AUTO) 0.2 % (0.0-6.0); HEMATOCRIT 26 % (33-45); HEMOGLOBIN 8.6 g/dL (11.5-14.8); LYMPHOCYTES # (AUTO) 1.9 /CMM (0.8-4.8); LYMPHOCYTES % (AUTO) 20.2 % (20.0-44.0); MEAN CORPUSCULAR HGB CONC 33 g/dl (31.0-36.0); MEAN CORPUSCULAR VOLUME 94 fL (82-100); MONOCYTES # (AUTO) 0.1 /CMM (0.1-1.30); MONOCYTES % (AUTO) 1.4 % (2.0-12.0); NEUTROPHILS # (AUTO) 7.3 /CMM (1.8-8.9); PLATELET COUNT (AUTO) 112 /CMM (150-450); RED BLOOD CELL COUNT(AUTO) 2.77 MIL/uL (4.0-5.2); WHITE BLOOD COUNT (AUTO) 9.3 K/uL (4.3-11.0)
[2019-01-27 09:17] LABS: ALBUMIN 2.4 g/dL (3.4-5.0); BILIRUBIN,TOTAL 0.2 mg/dL (0.2-1.0); CALCIUM, SERUM 7.8 mg/dL (8.5-10.1); CREATININE 2.2 mg/dL (0.6-1.3); MAGNESIUM 1.5 mg/dL (1.8-2.4); POTASSIUM 3.4 mmol/L (3.5-5.1); TOTAL PROTEIN, SERUM 4.9 g/dL (6.4-8.2)
--- NOTE | 2019-01-27 09:43 | NUR ---
DIALYSIS COMPLETE. 0mL OUT. BP 92/49, HR 96.
[2019-01-27] MEDS: FERROUS SULFATE (325 MG) 325 MG/TAB TABLET PO SCH (09:58)
[2019-01-27] MEDS: ASPIRIN EC 81 MG TABLET.DR PO SCH (09:58)
[2019-01-27] MEDS: PANTOPRAZOLE 40 MG TABLET.DR PO SCH (09:58)
[2019-01-27] MEDS: ASCORBIC ACID 500 MG TABLET PO SCH (09:58)
[2019-01-27] MEDS: ZINC SULFATE 220 MG CAPSULE PO SCH (09:58)
[2019-01-27] MEDS: HYDROGEL DRESSING 90 GM TUBE TP SCH (09:58)
[2019-01-27] MEDS: VIT B CMPLX 3/FA/VIT C/BIOTIN 1 TAB TABLET PO SCH (09:58)
[2019-01-27 10:10] LABS: BAND % (MANUAL) 2 % (0.0-5.0); LYMPHOCYTES % (MANUAL) 13 % (16-48); MONOCYTES % (MANUAL) 7 % (0-11.0); NEUTROPHILS % (MANUAL) 78 (42-76)
[2019-01-27 12:00] VITALS: BP 105/51
[2019-01-27] MEDS: Z GUARD REMEDY 2 OZ OINT TP SCH (14:00)
[2019-01-27] MEDS: CLOTRIMAZOLE 1% 15 GM TUBE TP SCH ×2 (14:00→17:21)
[2019-01-27] MEDS: PROSOURCE / PROSTAT (PYXIS) 30 ML UDC GT SCH ×2 (14:01→17:20)
[2019-01-27 16:00] VITALS: BP 104/62
[2019-01-27] MEDS: ACETAMINOPHEN W/ CODEINE#3 1 EA TABLET PO PRN ×2 (16:01→22:21)
[2019-01-27] MEDS: CLOTRIMAZOLE/BETAMETASONE DIPROPIONATE 15 GM TUBE TP SCH ×2 (16:26→17:21)
[2019-01-27 16:39] LABS: THYROID STIMULATING HORMONE 6.845 uIU/mL (0.358-3.74)
--- NOTE | 2019-01-27 19:00 | NUR ---
BINDING DYER CLOSING NOTE PATIENT A/O X1-2. NOTED LETHARGY AND LESS VERBALLY RESPONSIVE THIS SHIFT, FOLLOWS COMMAND. NO ACUTE DISTRESS OR SOB NOTED. ON ROOM AIR. TELE MONITOR ATTACHED. DR. SHERLEY CARCAMO, SAW PATIENT TODAY. ORDERS RECEIVED. PATIENT ALSO SEEN BY NEURO BARBECUE COOK ROXANNE, ORDERS RECEIVED. URINE CULTURE PENDING. FAMILY AT BEDSIDE AND UPDATED. ALL ORDERED WOUND CARE COMPLETED AND MEDS GIVEN. BED, LOCKED, LOW, SIDE RAILS UPX2, ENDORSED TO HOME APPRAISER RN BJ.
--- NOTE | 2019-01-27 19:35 | NUR ---
RN OPENING NOTES PATIENT IS MOANING IN PAIN, WAS TOLD BY THE AM NURSE THAT THERE HAS BEEN A CHANGE IN MENTAL STATUS, TESTS HAVE BEEN RUN AND WILL CONTINUE TO MONITER PATIENT AND MAKE SURE PATIENT IS NO NO ACUTE DISTRESS. SHE IS ON RA, SHOWS NO S/SX OR RESP DISTRESS OR SOB, . SAFETY MEASURES HAVE BEEN IMPLEMENTED, CALL LIGHT WITHIN REACH, SIDE RAILS UP X2, BED IN LOWEST AND LOCKED POSITION. .
[2019-01-27 20:00] VITALS: BP 100/50
[2019-01-27] MEDS: GABAPENTIN 300 MG CAPSULE PO SCH (21:27)
[2019-01-27] MEDS: SENNOSIDES 8.6 MG TABLET PO SCH (21:28)
[2019-01-27] MEDS: IV D5/ 0.9% NACL 1,000 ML IV SCH (22:21)
[2019-01-27 23:10] LABS: APPEARANCE,URINE CLOUDY (CLEAR); BILIRUBIN,URINE NEGATIVE (NEGATIVE); BLOOD, URINE 3+ Ery/uL (NEGATIVE); COLOR,URINE YELLOW (YELLOW); KETONES,URINE NEGATIVE (NEGATIVE); LEUKOCYTE ESTERASE ,URINE 3+ (NEGATIVE); NITRITE, URINE NEGATIVE (NEGATIVE); PH,URINE 7.5 (5.0-8.0); PROTEIN,URINE 2+ mg/dl (NEGATIVE); UGLUCOSE NEGATIVE (NEGATIVE); UROBILINOGEN,URINE 0.2 EU/dL (0.2)
[2019-01-27 23:16] LABS: BACTERIA,URINE Moderate /HPF (None Seen); SQUAMOUS EPITHELIAL CELL,UR Few /HPF (None Seen); WBC,URINE TOO NUMEROUS TO COUN /HPF (0-3); YEAST,URINE Few /HPF (None Seen)
[2019-01-28] MEDS: HYDROGEL DRESSING 90 GM TUBE TP SCH (03:00)
[2019-01-28] MEDS: CLOTRIMAZOLE 1% 15 GM TUBE TP SCH ×2 (03:00→16:19)
[2019-01-28 04:00] VITALS: BP 120/48
--- NOTE | 2019-01-28 06:54 | NUR ---
GLASS BULB SILVERER CLOSING NOTE PT IS CURRENTLY SLEEPING. PERIODS OF CONFUSION AND COMPLAINTS OF PAIN THROUGHOUT SHIFT. PT CAN FOLLOWS COMMANDS AND RESPONDS TO CERTAIN THINGS AT SPONTANEOUS TIMES. NO ACUTE DISTRESS NOTED OF ANY KIND. NO SOB NOTED. ALL NEEDS MET. WOUND CARE DONE. ON ROOM AIR TOLERATING WELL. HAD TWO BOWEL MOVEMENTS. TELE MONITOR ATTACHED. DAND MEDS GIVEN. BED, LOCKED, LOW, SIDE RAILS UPX2, ENDORSED TO AM SHIFT.
[2019-01-28 08:00] VITALS: BP 96/52
[2019-01-28] MEDS: FERROUS SULFATE (325 MG) 325 MG/TAB TABLET PO SCH (08:12)
[2019-01-28] MEDS: PROSOURCE / PROSTAT (PYXIS) 30 ML UDC GT SCH ×2 (08:12→16:16)
[2019-01-28] MEDS: PANTOPRAZOLE 40 MG TABLET.DR PO SCH (08:12)
[2019-01-28] MEDS: VIT B CMPLX 3/FA/VIT C/BIOTIN 1 TAB TABLET PO SCH (08:12)
[2019-01-28] MEDS: ASCORBIC ACID 500 MG TABLET PO SCH (08:12)
[2019-01-28] MEDS: ASPIRIN EC 81 MG TABLET.DR PO SCH (08:12)
[2019-01-28] MEDS: ZINC SULFATE 220 MG CAPSULE PO SCH (08:12)
[2019-01-28] MEDS: Z GUARD REMEDY 2 OZ OINT TP SCH (08:14)
[2019-01-28] MEDS: CLOTRIMAZOLE/BETAMETASONE DIPROPIONATE 15 GM TUBE TP SCH ×2 (08:14→16:19)
[2019-01-28] MEDS: APIXABAN 2.5 MG TABLET PO SCH ×2 (08:15→16:18)
[2019-01-28] MEDS: ACETAMINOPHEN W/ CODEINE#3 1 EA TABLET PO PRN ×2 (08:22→21:51)
[2019-01-28] MEDS: CEFTRIAXONE 1 G in IV D5W 50 ML IV SCH (09:18)
[2019-01-28] MEDS: IV D5/ 0.9% NACL 1,000 ML IV SCH (09:27)
--- NOTE | 2019-01-28 13:25 | NUR ---
RN NOTE RECEIVED CALL FROM [facility],INFORMED PATIENT HAS POSITIVE BLOOD CULTURE.GRAM POSITIVE COCCI IN CHAIN. MADE AWARE.
[2019-01-28] MEDS ORDERED: NEPRO VAN 237 ML CAN PO PRN (13:30)
--- NOTE | 2019-01-28 13:30 | NUR ---
MS RN OPENING NOTE GOT REPORT FROM OMARI AT BEDSIDE. PT AWAKE/ALERT X1. NO COMPLAIN OF PAIN. ON ROOM AIR TOLERATING WELL. RIGHT UPPER ARM PICC LINE D5 NS RUNNING @80 ML/HR. NO ACUTE DISTRESS OR SOB NOTED. BED, LOCKED, LOW, SIDE RAILS UPX2. CALL LIGHTWITHIN THE REACH. WILL CONT' TO MONITOR CLOSELY.
--- NOTE | 2019-01-28 13:30 | NUR ---
RN NOTE ENDORSED TO MEERA RN FOR JUAN R.PATIENT IN STABLE CONDITION.
--- NOTE | 2019-01-28 15:24 | NUR ---
RN MS NOTE DATA ENTRY SPECIALIST AT BEDSIDE TO TAKE THE PATIENT, BUT HE SAID PATIENT WOULD NOT FIT IN THE MRI MACHINE. DR MORENO AND DR. PROCTOR MADE AWARE THAT VALVE AND REGULATOR REPAIRER WAS UNABLE TO DO MRI DUE TO PATIENT WOULD NOT FIT IN THE MACHINE.
[2019-01-28 16:00] VITALS: BP 112/48
--- NOTE | 2019-01-28 19:30 | NUR ---
MS RN OPENING NOTE PT IS IN BED SLEEPING NO ACUTE DISTRESS NOTED. RIGHT UPPER ARM PICC LINE D5 NS RUNNING @80 ML/HR. BED, LOCKED, LOW, SIDE RAILS UPX2. CALL LIGHT WITHIN THE REACH. WILL CONT' TO MONITOR CLOSELY AND CARRY OUT PLAN OF CARE. Addendum: 01/28/19 at 1952 by BJ QUINTERO RN MS RN OPENING NOTE PT IS IN BED SLEEPING NO ACUTE DISTRESS NOTED. PT IS AO TIMES 1. INCONTINENT, AND ON ROOM AIR SATTING WELL. RIGHT HAND IV IN TACT AND FLUIDS RUNNING. BED IN LOCKED, LOW, SIDE RAILS UPX2. CALL LIGHT WITHIN THE REACH. WILL CONT' TO MONITOR CLOSELY AND CARRY OUT PLAN OF CARE. Addendum: 01/28/19 at 1955 by BJ QUINTERO RN DISREGARD THE AMENDED NOTE ABOVE.
--- NOTE | 2019-01-28 19:31 | NUR ---
MS RN CLOSING NOTE PATIENT A/O X1-2. NO ACUTE DISTRESS OR SOB NOTED. ON ROOM AIR SATURATING WELL. ALL ORDERED WOUND CARE COMPLETED AND MEDS GIVEN. BED, LOCKED, LOW, SIDE RAILS UPX2, ENDORSED TO CLIENT PROJECT COORDINATOR FOR JUAN R.
[2019-01-28] MEDS: SENNOSIDES 8.6 MG TABLET PO SCH (21:50)
[2019-01-28] MEDS: GABAPENTIN 300 MG CAPSULE PO SCH (21:50)
[2019-01-29] VITALS: BP 112/48
[2019-01-29 04:00] VITALS: BP 133/80
[2019-01-29] MEDS: ACETAMINOPHEN W/ CODEINE#3 1 EA TABLET PO PRN (04:50)
--- NOTE | 2019-01-29 05:30 | NUR ---
RECIEVED CALL FROM PHARMACY INDICATING THAT ANOTHER RESULT OF GRAM GAYATRI POSITIVE COCCI IN CHAINS SEEN ON GRAM STAIN RESULTED POSITIVE. WILL ENDORSE TO AM SHIFT TO MAKE MD AWARE AND CARRY OUT PLAN OF CARE.
--- NOTE | 2019-01-29 07:03 | NUR ---
LARGE PATIENT WON'T FIT IN MRI TUBE, PER TRACK LAMINATING MACHINE TENDER RONAN.
--- NOTE | 2019-01-29 07:23 | NUR ---
MS RN CLOSING NOTES: . PT AWAKE/ALERT X1. NO COMPLAIN OF PAIN. ALL NETS MET AND WAS PUT ON TWO LITERS OF O2. SATTING WELL. RIGHT UPPER ARM PICC LINE D5 NS RUNNING @80 ML/HR. NO ACUTE DISTRESS OR SOB NOTED. BED, LOCKED, LOW, SIDE RAILS UPX2. CALL LIGHTWITHIN THE REACH. WILL ENDORSE TO AM SHIFT TO CONT' TO MONITOR CLOSELY.
--- NOTE | 2019-01-29 07:45 | NUR ---
RN OPENING NOTES RECEIVED PATIENT AWAKE AND CONFUSED IN BED. SHE IS AOX1-2, VERBAL, NONAMBULATORY. SHE IS ON 2L OF OXYGEN, SHOWS NO S/SX OR RESP DISTRESS OR SOB. BLE HAVE PITTING EDEMA, 3+. SHE HAS A STAGE 3 ON BUTTOCKS, DRESSING WILL BE CHANGED. SHE IS ON A RENAL STANDARD DIET, SHE HAS A R SUBCLAVIAN CATH, ERLINDA PICC, AND MERCED SHUNT. SAFETY MEASURES HAVE BEEN IMPLEMENTED, CALL LIGHT WITHIN REACH, BED IN LOWEST AND LOCKED POSITION, SIDE RAILS UP X2, WILL CONTINUE TO MONITOR FOR ANY CHANGES.
[2019-01-29 08:00] VITALS: BP 90/42
[2019-01-29] MEDS ORDERED: Hydrogel Dressing TP (08:21)
[2019-01-29] MEDS ORDERED: CLOT15CR5 TP (08:21)
[2019-01-29] MEDS ORDERED: CEFT1VIA15 IV (08:22)
[2019-01-29] MEDS ORDERED: VANC1PLA9 IV (08:29)
--- NOTE | 2019-01-29 08:41 | NUR ---
0800 AND 0900 MEDS WILL BE DELAYED. PATIENT IS RECEIVING HD
[2019-01-29] MEDS: Z GUARD REMEDY 2 OZ OINT TP SCH (09:00)
[2019-01-29] MEDS: HYDROGEL DRESSING 90 GM TUBE TP SCH (09:00)
[2019-01-29] MEDS: CLOTRIMAZOLE/BETAMETASONE DIPROPIONATE 15 GM TUBE TP SCH (09:00)
[2019-01-29] MEDS: CLOTRIMAZOLE 1% 15 GM TUBE TP SCH (09:00)
[2019-01-29] MEDS ORDERED: FEE PK DOSING 1 MIN EA MC ONE (09:22)
[2019-01-29] MEDS ORDERED: VANCOMYCIN 500 MG in IV D5W 100 ML IV PRN (09:30)
--- NOTE | 2019-01-29 09:30 | NUR ---
PHARMACY CALLED INQUIRING ABOUT VANCOMYCIN ORDER. PAGED DR. CHRIS, WAITING FOR RESPONSE
[2019-01-29] MEDS ORDERED: VANCOMYCIN 1 GM in IV D5W 250 ML IV ONE (10:30)
[2019-01-29] MEDS: PANTOPRAZOLE 40 MG TABLET.DR PO SCH (10:36)
[2019-01-29] MEDS: CEFTRIAXONE 1 G in IV D5W 50 ML IV SCH (10:36)
[2019-01-29] MEDS: VIT B CMPLX 3/FA/VIT C/BIOTIN 1 TAB TABLET PO SCH (10:36)
[2019-01-29] MEDS: FERROUS SULFATE (325 MG) 325 MG/TAB TABLET PO SCH (10:36)
[2019-01-29] MEDS: ZINC SULFATE 220 MG CAPSULE PO SCH (10:37)
[2019-01-29] MEDS: ASCORBIC ACID 500 MG TABLET PO SCH (10:37)
[2019-01-29] MEDS: ASPIRIN EC 81 MG TABLET.DR PO SCH (10:37)
[2019-01-29] MEDS: APIXABAN 2.5 MG TABLET PO SCH (10:40)
[2019-01-29] MEDS: PROSOURCE / PROSTAT (PYXIS) 30 ML UDC GT SCH (10:41)
--- NOTE | 2019-01-29 13:03 | NUR ---
GAVE TRANSFER REPORT TO KELLY, [facility]
--- NOTE | 2019-01-29 14:32 | NUR ---
PATIENT HAS BEEN DISCHARGED TO [facility], REPORT GIVEN TO KELLY. SHE LEFT THE UNIT VIA GURNEY WITH EMT AT 1432. PATIENT WAS GIVEN LOADING DOSE OF VANCOMYCIN PRIOR TO HER DEPARTURE. PICC LINE ON R UPPER ARM WAS NOT REMOVED. EXIT CARE WAS PROVIDED, MEDICATIONS, FACE SHEET, LABS, ETC. DRESSING CHANGE FOR WOUNDS WERE DONE PRIOR TO HER LEAVING. PICTURES OF WOUNDS WERE TAKEN AND PUT INTO THE CHART. PATIENT'S DENTURES WERE TAKEN WITH HER
[2019-01-29] MEDS ORDERED: AMIN30LI2 PO (18:45)
[2019-01-29] MEDS ORDERED: ACET-868 PO (18:45)
[2019-01-29] MEDS ORDERED: NUT.237L67 PO (18:45)
[2019-01-29] MEDS ORDERED: GABA-532 PO (18:45)
== END 2019-01-29 14:32 | DRG 853 ==
LOC: ER 13:28 → TELE-TD 14:48 → MEDSG1 01-19 08:30 → TELE1 01-27 08:22 → MEDSG1 01-28 08:30
PROVIDERS: ADMIT Internal Medicine Nephrology; ATTEND Internal Medicine
PROC: 02HV33Z Insertion of Infusion Device into Superior Vena Cava, Percutaneous Approach (ICD-10-PCS; 2019-01-18)
PROC: B548ZZA Ultrasonography of Superior Vena Cava, Guidance (ICD-10-PCS; 2019-01-18)
PROC: 5A1D70Z Performance of Urinary Filtration, Intermittent, Less than 6 Hours Per Day (ICD-10-PCS; 2019-01-18)
PROC: 0JB70ZZ Excision of Back Subcutaneous Tissue and Fascia, Open Approach (ICD-10-PCS; principal; 2019-01-19)
PROC: 0JBM0ZZ Excision of Left Upper Leg Subcutaneous Tissue and Fascia, Open Approach (ICD-10-PCS; 2019-01-19)
PROC: 0JB90ZZ Excision of Buttock Subcutaneous Tissue and Fascia, Open Approach (ICD-10-PCS; 2019-01-19)
PROC: 0JB90ZZ Excision of Buttock Subcutaneous Tissue and Fascia, Open Approach (ICD-10-PCS; 2019-01-27)
DX: A41.9 Sepsis, unspecified organism (principal); L89.153 Pressure ulcer of sacral region, stage 3; L89.323 Pressure ulcer of left buttock, stage 3; L89.313 Pressure ulcer of right buttock, stage 3; N18.6 End stage renal disease; G92 Toxic encephalopathy; N39.0 Urinary tract infection, site not specified; E46 Unspecified protein-calorie malnutrition; L97.829 Non-pressure chronic ulcer of other part of left lower leg with unspecified severity; L97.819 Non-pressure chronic ulcer of other part of right lower leg with unspecified severity; Z68.41 Body mass index [BMI] 40.0-44.9, adult; Z99.2 Dependence on renal dialysis; L30.4 Erythema intertrigo; E66.01 Morbid (severe) obesity due to excess calories; D64.9 Anemia, unspecified; Z74.01 Bed confinement status; S71.112A Laceration without foreign body, left thigh, initial encounter; X58.XXXA Exposure to other specified factors, initial encounter; Y93.9 Activity, unspecified; Y92.129 Unspecified place in nursing home as the place of occurrence of the external cause; I70.248 Atherosclerosis of native arteries of left leg with ulceration of other part of lower leg; I70.238 Atherosclerosis of native arteries of right leg with ulceration of other part of lower leg; Z79.82 Long term (current) use of aspirin; Z79.01 Long term (current) use of anticoagulants
CPT/HCPCS: 36415; 36569; 70450-TC; 71045-TC; 80048-TC; 80053-TC; 80076-TC; 81000-TC; 82140-TC; 82962-TC; 83605-TC; 83735-TC; 83880; 84100-TC; 84443-TC; 84484-TC; 85025-TC; 85730-TC; 86706; 87040-TC; 87081-TC; 87086-TC; 87186-TC; 87340; 87806; 90935-TC; 97530-TC; A4216; A6248; A6253; A6403; C1751; G0378; J0696; J0885; J3370; J3475; J7030; J7040; J7042; J7060; P9047

== ENCOUNTER 2019-01-29 16:11 | Inpatient (IN) | payer MEDICARE, OTHER ==
[~2019-01-29 16:11] MED LIST: ACET-907 PO; APIX2.5T PO; ASCO500T8 PO; ASPI-605 PO; BISA10SU61 RC; CEFT1VIA15 IV; CLOT15CR5 TP; FERR325T23 PO; FOLI0.8T43 PO; GABA-534 PO; Hydrogel Dressing TP; MAGN400O6 BC; NA P133E RC; PANT40TA4 PO; PROT946L PO; SENN-168 PO; TRAM50TA2 PO; VANC1PLA9 IV; ZINC220C6 PO
[2019-01-29] MEDS ORDERED: GABA-532 PO (18:45)
[2019-01-29] MEDS ORDERED: ACET-868 PO (18:45)
[2019-01-29] MEDS ORDERED: NUT.237L67 PO (18:45)
[2019-01-29] MEDS ORDERED: AMIN30LI2 PO (18:45)
[2019-01-29] MEDS ORDERED: IV NS 0.9% 500 ML BAG IV ONE (19:30)
[2019-01-29] MEDS ORDERED: IV NS 0.9% 1,000 ML BAG IV PRN (23:00)
[2019-01-30] MEDS ORDERED: ONDANSETRON HCL/PF 4 MG/2 ML VIAL IVP PRN (00:30)
[2019-01-30] MEDS ORDERED: Z GUARD REMEDY 2 OZ OINT TP PRN (00:30)
[2019-01-30] MEDS ORDERED: NA PHOS,M-B/NA PHOS,DI-BA 1 EA ENEMA RC PRN (00:30)
[2019-01-30] MEDS ORDERED: BISACODYL SUPP (10 MG) 10 MG/SUPP.RECT SUPP.RECT RC PRN (00:30)
[2019-01-30] MEDS ORDERED: ZOLPIDEM TARTRATE 5 MG TABLET PO PRN (00:30)
[2019-01-30] MEDS ORDERED: ACETAMINOPHEN 325 MG TABLET PO PRN ×2 (00:30)
[2019-01-30] MEDS ORDERED: PIPERACILLIN /TAZOBACTAM 2.25 G in IV D5W 50 ML IV ONE (01:00)
[2019-01-30] MEDS ORDERED: PIPERACILLIN /TAZOBACTAM 3.375 G VIAL IV ONE (01:14)
[2019-01-30] MEDS ORDERED: PIPERACILLIN /TAZOBACTAM 2.25 G VIAL IV ONE (01:25)
[2019-01-30] MEDS ORDERED: VANCOMYCIN 1.5 GM in IV D5W 500ml IV ONE (01:30)
[2019-01-30] MEDS: IV NS 0.9% 1,000 ML IV PRN (02:25)
[2019-01-30] MEDS ORDERED: VANCOMYCIN 1 GM VIAL ONE (02:55)
[2019-01-30] MEDS ORDERED: IV NS 0.9% 250 ML IV ONE (04:00)
[2019-01-30] MEDS ORDERED: VANCOMYCIN 500 MG in IV D5W 100 ML IV PRN (07:30)
[2019-01-30] MEDS ORDERED: FEE PK DOSING 1 MIN EA MC ONE (07:33)
[2019-01-30] MEDS: APIXABAN 2.5 MG TABLET PO SCH ×2 (09:00→17:00)
[2019-01-30] MEDS: NEPRO VAN 237 ML CAN PO SCH ×4 (09:00→21:33)
[2019-01-30] MEDS ORDERED: SODIUM CL FOR INHALATION 3% 15 ML VIAL.NEB IH ONE (09:00)
[2019-01-30] MEDS: ASPIRIN EC 81 MG TABLET.DR PO SCH (09:38)
[2019-01-30] MEDS: PANTOPRAZOLE 40 MG TABLET.DR PO SCH (09:38)
[2019-01-30] MEDS: FERROUS SULFATE (325 MG) 325 MG/TAB TABLET PO SCH (09:38)
[2019-01-30] MEDS: ZINC SULFATE 220 MG CAPSULE PO SCH (09:38)
[2019-01-30] MEDS: PIPERACILLIN /TAZOBACTAM 2.25 G in IV D5W 50 ML IV SCH ×3 (09:40→21:32)
[2019-01-30] MEDS ORDERED: IV NS 0.9% 1,000 ML IV STA ×2 (10:02→11:35)
[2019-01-30] MEDS ORDERED: IV NS 0.9% 500 ML IV STA (11:35)
[2019-01-30] MEDS ORDERED: IV NS 0.9% 1,000 ML IV ONE (14:00)
[2019-01-30] MEDS: HYDROGEL DRESSING 90 GM TUBE TP SCH (14:05)
[2019-01-30] MEDS: CLOTRIMAZOLE 1% 15 GM TUBE TP SCH ×2 (14:05→17:50)
[2019-01-30] MEDS: SENNOSIDES 8.6 MG TABLET PO SCH (21:25)
[2019-01-30] MEDS: GABAPENTIN 300 MG CAPSULE PO SCH (21:32)
[2019-01-31] MEDS: IV NS 0.9% 1,000 ML IV PRN ×2 (03:04→20:05)
[2019-01-31] MEDS: PIPERACILLIN /TAZOBACTAM 2.25 G in IV D5W 50 ML IV SCH (05:50)
[2019-01-31] MEDS ORDERED: ALBUMIN 25% 25 GM in PREMIX 1 EA IV ONE (08:30)
[2019-01-31] MEDS: FERROUS SULFATE (325 MG) 325 MG/TAB TABLET PO SCH (08:50)
[2019-01-31] MEDS: ASPIRIN EC 81 MG TABLET.DR PO SCH (08:50)
[2019-01-31] MEDS: ZINC SULFATE 220 MG CAPSULE PO SCH (08:50)
[2019-01-31] MEDS: PANTOPRAZOLE 40 MG TABLET.DR PO SCH (09:00)
[2019-01-31] MEDS: APIXABAN 2.5 MG TABLET PO SCH ×2 (09:03→17:00)
[2019-01-31] MEDS: NEPRO VAN 237 ML CAN PO SCH ×4 (09:09→20:48)
[2019-01-31] MEDS: CLOTRIMAZOLE 1% 15 GM TUBE TP SCH ×2 (09:10→17:10)
[2019-01-31] MEDS: HYDROGEL DRESSING 90 GM TUBE TP SCH (09:10)
[2019-01-31] MEDS ORDERED: POTASSIUM CHLORIDE 20 MEQ TAB.PRT.SR PO ONE (13:00)
[2019-01-31] MEDS: FAMOTIDINE (20 MG) 20 MG TABLET PO SCH (13:05)
[2019-01-31] MEDS ORDERED: FLUCONAZOLE IN NS 100 MG in PREMIX 1 EA IV SCH ×2 (14:00)
[2019-01-31] MEDS ORDERED: NEUTRA PHOS 1 POWD.PACKET PO ONE (16:00)
[2019-01-31] MEDS: LACTOBACILLUS RHAMNOSUS GG 1 EACH CAP.SPRINK PO SCH (17:00)
[2019-01-31] MEDS: LINEZOLID RTU BAG 600 MG in PREMIX 1 EA IV SCH (17:20)
[2019-01-31] MEDS: METRONIDAZOLE 500MG/ NS 100ML 500 MG in PREMIX 1 EA IV SCH (21:32)
[2019-01-31] MEDS: GABAPENTIN 300 MG CAPSULE PO SCH (21:59)
[2019-01-31] MEDS: SENNOSIDES 8.6 MG TABLET PO SCH (22:00)
[2019-02-01] MEDS ORDERED: NOREPINEPHRINE 8 MG in IV D5W 500 ML IV PRN (02:00)
[2019-02-01] MEDS ORDERED: NOREPINEPHRINE 4 MG/4 ML AMPUL IV ONE ×2 (02:05→02:10)
[2019-02-01] MEDS ORDERED: SODIUM BICARBONATE SYR 50 MEQ/50 ML DISP.SYRIN ONE ×3 (02:09→04:33)
[2019-02-01] MEDS: NOREPINEPHRINE 16 MG in IV D5W 500 ML IV PRN ×2 (02:19→07:00)
[2019-02-01] MEDS ORDERED: SODIUM BICARBONATE SYR 150 MEQ in IV NS 0.9% 1,000 ML IV PRN ×2 (02:30→05:30)
[2019-02-01] MEDS ORDERED: SODIUM BICARBONATE SYR 100 MEQ in IV NS 0.9% 1,000 ML IV PRN (02:30)
[2019-02-01] MEDS ORDERED: VASOPRESSIN INJ 50 UNIT in IV D5W 497.5 ML IV PRN (04:00)
[2019-02-01] MEDS ORDERED: SODIUM BICARBONATE SYR 50 MEQ/50 ML DISP.SYRIN IV ONE ×4 (04:30→14:15)
[2019-02-01] MEDS ORDERED: SUCCINYLCHOLINE CHLORIDE 20 MG/ML VIAL IV ONE ×2 (05:00→12:29)
[2019-02-01] MEDS ORDERED: ETOMIDATE 2 MG/ML VIAL IV ONE ×2 (05:00→12:29)
[2019-02-01] MEDS ORDERED: VASOPRESSIN INJ 20 UNIT/ML VIAL ONE ×2 (05:11→05:13)
[2019-02-01] MEDS ORDERED: PHENYLEPHRINE 10 MG/ML VIAL ONE (05:33)
[2019-02-01] MEDS: PHENYLEPHRINE 80 MG in IV NS 0.9% 250 ML IV PRN ×3 (05:40→11:51)
[2019-02-01] MEDS: METRONIDAZOLE 500MG/ NS 100ML 500 MG in PREMIX 1 EA IV SCH ×2 (06:58→13:15)
[2019-02-01] MEDS: ALBUTEROL FS 2.5 MG/0.5 ML VIAL.NEB NEB SCH ×2 (07:35→13:47)
[2019-02-01] MEDS: NEPRO VAN 237 ML CAN PO SCH ×2 (08:05→13:00)
[2019-02-01] MEDS: HYDROCORTISONE SOD SUCCINATE 100 MG/2 ML VIAL IV SCH ×2 (08:46→13:12)
[2019-02-01] MEDS: FAMOTIDINE (20 MG) 20 MG TABLET PO SCH (08:47)
[2019-02-01] MEDS: FERROUS SULFATE (325 MG) 325 MG/TAB TABLET PO SCH (08:47)
[2019-02-01] MEDS: ZINC SULFATE 220 MG CAPSULE PO SCH (08:47)
[2019-02-01] MEDS: LACTOBACILLUS RHAMNOSUS GG 1 EACH CAP.SPRINK PO SCH (08:47)
[2019-02-01] MEDS: LINEZOLID RTU BAG 600 MG in PREMIX 1 EA IV SCH (08:50)
[2019-02-01] MEDS: VANCOMYCIN HCL 125 MG/2.5 ML ORAL.SUSP PO SCH ×3 (08:56→13:12)
[2019-02-01] MEDS: HYDROGEL DRESSING 90 GM TUBE TP SCH (09:00)
[2019-02-01] MEDS: CLOTRIMAZOLE 1% 15 GM TUBE TP SCH (09:00)
[2019-02-01] MEDS ORDERED: FLUDROCORTISONE 0.1 MG TABLET NG SCH (12:00)
[2019-02-01] MEDS ORDERED: EPINEPHRINE (1:1000) 2 MG in IV D5W 250 ML IV PRN (13:00)
[2019-02-01] MEDS ORDERED: CALCIUM CHLORIDE 1,000 MG/10 ML DISP.SYRIN IV ONE (14:15)
[2019-02-01] MEDS ORDERED: EPINEPHRINE (1:10,000) SYRINGE 1 MG/10 ML DISP.SYRIN IVP ONE (14:15)
[2019-02-01] MEDS ORDERED: DEXTROSE 50%-WATER 50 ML DISP.SYRIN IV ONE (14:15)
== END 2019-02-01 17:11 | disposition expired | DRG 871 ==
DX: A41.9 Sepsis, unspecified organism (principal); L89.153 Pressure ulcer of sacral region, stage 3; N18.6 End stage renal disease; L89.323 Pressure ulcer of left buttock, stage 3; L89.313 Pressure ulcer of right buttock, stage 3; J18.9 Pneumonia, unspecified organism; R65.21 Severe sepsis with septic shock; J96.90 Respiratory failure, unspecified, unspecified whether with hypoxia or hypercapnia; I12.0 Hypertensive chronic kidney disease with stage 5 chronic kidney disease or end stage renal disease; E87.2 Acidosis; Z68.41 Body mass index [BMI] 40.0-44.9, adult; G93.40 Encephalopathy, unspecified; A04.72 Enterocolitis due to Clostridium difficile, not specified as recurrent; B37.49 Other urogenital candidiasis; I38 Endocarditis, valve unspecified; L97.929 Non-pressure chronic ulcer of unspecified part of left lower leg with unspecified severity; L97.919 Non-pressure chronic ulcer of unspecified part of right lower leg with unspecified severity; Z99.2 Dependence on renal dialysis; D63.1 Anemia in chronic kidney disease; D69.6 Thrombocytopenia, unspecified; L30.4 Erythema intertrigo; L98.8 Other specified disorders of the skin and subcutaneous tissue; E66.01 Morbid (severe) obesity due to excess calories; S71.112A Laceration without foreign body, left thigh, initial encounter; S71.111A Laceration without foreign body, right thigh, initial encounter; X58.XXXA Exposure to other specified factors, initial encounter; Y92.89 Other specified places as the place of occurrence of the external cause; G62.9 Polyneuropathy, unspecified; Z79.01 Long term (current) use of anticoagulants; I70.239 Atherosclerosis of native arteries of right leg with ulceration of unspecified site; I70.249 Atherosclerosis of native arteries of left leg with ulceration of unspecified site